=== PATIENT | male | born 1980 | race Two or more races ===

== ENCOUNTER 2019-03-08 18:57 | Inpatient (IN) | payer MEDICAID ==
[~2019-03-08] VITALS: Ht 170.2 cm; Wt 58.4 kg
[~2019-03-08 18:57] MED LIST: CHLO10CA70 PO; FOLI1TAB6 PO; LACT10SO3 PO; PANT40T PO; PRO20T PO; THIA50CA PO
[2019-03-08] MEDS ORDERED: SODIUM CHLORIDE 0.9% 500 ML IV ONE (19:45)
[2019-03-08 19:48] LABS: Hematocrit 30.1 % (41.0-53.0); Mean Corpuscular Hemoglobin 30.5 pg (28.0-32.0); Mean Corpuscular Hgb Conc. 33.2 g/dL (32.0-36.0); Mean Corpuscular Volume 91.7 fL (80.0-100.0); Platelet Count (auto) 67 10^3/uL (140-450); Red Blood Cells 3.28 10^6/uL (4.5-5.90); White Blood Cell 18.8 10^3/uL (4.4-10.8)
[2019-03-08 20:06] LABS: Albumin 1.5 g/dL (3.4-5.0); Calcium 7.8 mg/dL (8.5-10.1); Potassium 3.2 mmol/L (3.5-5.1)
[2019-03-08 20:13] LABS: BUN/Creatinine Ratio 10.4
[2019-03-08 20:15] LABS: Total Protein 6.8 g/dL (6.4-8.2)
[2019-03-08 20:33] LABS: INR 1.95 (0.9-1.15); Prothrombin Time 20.1 sec (9.27-12.13)
[2019-03-08 20:46] LABS: Bilirubin, Total 26.1 mg/dL (0.2-1.0)
[2019-03-08 20:55] LABS: Red Cell Distribution Width 23.9 % (11.8-14.3)
[2019-03-08 20:58] LABS: Basophils % (manual) 0 (0.0-2.0); Blast Cells 0; Eosinophils % (manual) 0 (0-7); Metamyelocytes % 0; Myelocytes % 0; Promyelocytes % 0; Reactive Lymphocytes 0
[2019-03-08 21:55] LABS: Band Neutrophils % (manual) 9; Lymphocytes % (manual) 9 (10.0-50.0); Monocytes % (manual) 9 (0-12)
[2019-03-08] MEDS ORDERED: LACTULOSE 20Gm/30ML SOLN PO ONE (22:15)
[2019-03-08] MEDS ORDERED: ONDANSETRON HCL 4 MG/2 ML VIAL IV PRN (22:45)
[2019-03-08] MEDS ORDERED: TEMAZEPAM 15 MG CAP PO PRN (22:45)
[2019-03-08] MEDS ORDERED: ALBUMIN 5% 250 ML IV ONE (23:15)
[2019-03-09] VITALS (81 sets, daily range): BP systolic 80–130; BP diastolic 39–73
[2019-03-09] MEDS: PIPERACILLIN-TAZOB 2.25GM 50 ML IV SCH ×4 (00:26→22:42)
[2019-03-09] MEDS ORDERED: PHENYLEPHRINE HCL 10 MG/ML VL ONE (01:01)
[2019-03-09] MEDS: PHENYLEPHRINE INJ 20 MG in SODIUM CHL 0.9% 250 ML IV SCH ×3 (01:41→17:15)
--- NOTE | 2019-03-09 02:00 | NUR ---
PT. ARRIVED ON UNIT FROM ER; PT. ON PHENYLEPHRINE GTT AT 40 MCG; PT. IMMEDIATELY NEEDING TO USE TOILET PT. ON LACTULOSE.
--- NOTE | 2019-03-09 02:20 | NUR ---
PT. BACK TO BED WITH NO NOTABLE ABNORMALITIES WITH STOOL; PT. PLACED ON BEDSIDE MONITOR; VITAL SIGNS WNL WITH EXCEPTION TO TEMP AT 95.8 AXILLARY AND WARM BLANKETS X3 PLACED ON PT. AND ROOM TEMP ADJUSTED; PT. ON PHENYLEPHRINE GTT; PT. USES BEDSIDE TOILET; PATIENT STATES " MY PAIN GOAL IS 0-2/10 AND I'M AT A 2/10"; PT. /SON IN ICU WAITING ROOM; WILL BRING FAMILY BACK AND WILL CONT. TO MONITOR PATIENT.
--- NOTE | 2019-03-09 03:30 | NUR ---
DR. BRANDON-RADIOLOGY CALLED WITH RESULTS FROM U/S AND IT SHOWS A THROMBOSED PORTAL VEIN.
--- NOTE | 2019-03-09 03:40 | NUR ---
PAGED HOSPITALIST RE: U/S RESULTS.
--- NOTE | 2019-03-09 03:45 | NUR ---
S/W Winter WILLAMS NP RE: U/S RESULTS SHOWING A THROMBOSED PORTAL VEIN AND HE WILL GET BACK WITH ME.
--- NOTE | 2019-03-09 03:55 | NUR ---
S/W Winter WILLAMS NP AND WILL PUT IN FOR IR CONSULT FIRST AND IF IR UNABLE TO INTERVENE WILL POSSIBLY BE TRANSFERRED TO HIGHER LEVEL OF CARE.
[2019-03-09 04:32] LABS: Basophils # (auto) 0 uL; Basophils % (auto) 0.2 % (0.0-2.0); Eosinophils # (auto) 0.2 uL; Mean Corpuscular Hemoglobin 30.5 pg (28.0-32.0)
[2019-03-09 04:34] LABS: Eosinophils % (auto) 0.7 % (0.0-7.0); Hematocrit 29.7 % (41.0-53.0); Lymphocytes # (auto) 1.3 uL; Lymphocytes % (auto) 6.3 % (10.0-50.0); Mean Corpuscular Hgb Conc. 33.8 g/dL (32.0-36.0); Mean Corpuscular Volume 90.2 fL (80.0-100.0); Monocytes # (auto) 1.7 uL; Monocytes % (auto) 8.2 % (0.0-12.0); Neutrophils # (auto) 17.5 uL; Neutrophils % (auto) 84.6 % (37.0-80.0); Nucleated Red Blood Cells % 0.1 %; Platelet Count (auto) 65 10^3/uL (140-450); Red Blood Cells 3.29 10^6/uL (4.5-5.90); White Blood Cell 20.7 10^3/uL (4.4-10.8)
[2019-03-09 04:41] LABS: Red Cell Distribution Width 23.8 % (11.8-14.3)
[2019-03-09 04:47] LABS: Potassium 3.1 mmol/L (3.5-5.1)
[2019-03-09 05:02] LABS: Albumin 1.7 g/dL (3.4-5.0); BUN/Creatinine Ratio 11.8; Bilirubin, Total 24.2 mg/dL (0.2-1.0); Calcium 7.8 mg/dL (8.5-10.1); Total Protein 6.6 g/dL (6.4-8.2)
[2019-03-09] MEDS: PANTOPRAZOLE 40 MG TAB PO SCH (06:00)
[2019-03-09] MEDS ORDERED: POTASSIUM CHL 20 Meq TABLET PO ONE (06:15)
[2019-03-09] MEDS: metroNIDAZOLE 500MG/100ML 100 ML IV SCH ×3 (07:20→21:58)
--- NOTE | 2019-03-09 08:30 | NUR ---
NPO BREAKFAST TRAY HELD 1000 MEDICATIONS HELD UNTIL AFTER PROCEDURES PENDING.
[2019-03-09] MEDS: ALBUMIN 25% 100 ML IV SCH ×2 (09:21→18:33)
[2019-03-09 10:41] LABS: Urine Bacteria MOD /hpf (None Seen); Urine Blood 3+ /uL (Negative); Urine Hyaline Cast MOD /lpf (0 - 2); Urine Mucus FEW (None Seen); Urine Specific Gravity 1.015 (1.001-1.035); Urine WBC 30 /hpf (0 - 3); Urine WBC Clumps PRESENT /hpf (None Seen)
[2019-03-09 10:44] LABS: Alcohol, Urine < 3.0 mg/dL (0-5); Amphetamine Screen, Urine NEGATIVE (NEGATIVE); Barbiturate Scree,Urine NEGATIVE (NEGATIVE); Benzodiazephine Screen, Urine POSITIVE (NEGATIVE); Cannabinoid Screen, Urine POSITIVE (NEGATIVE); Cocaine Screen, Urine NEGATIVE (NEGATIVE); Opiate Scree,Urine NEGATIVE (NEGATIVE); Phencyclidine Screen, Urine NEGATIVE (NEGATIVE)
--- NOTE | 2019-03-09 10:53 | NUR ---
SECOND ATTEMPTED TO REINSERT LEWIS CATHETER, NO SEDIMENT OR URINE NOTED, WHEN CATHETER REMOVED A STREAK OF LINEAR BLOOD CLOT NOTED. WILL NOTIFY CHARGE NURSE TO ATTEMPT PREVIOUS ATTEMPTS HAVE FAILED.
--- NOTE | 2019-03-09 11:26 | NUR ---
GI CONSULT DR. DOMINIQUE AT BEDSIDE. MD UPDATED ON PATIENTS STATUS. NEW ORDERS IN PLACE. MD ALSO UPDATED AND SON AT NURSES STATION ON PATIENTS POOR STATUS/ CONDITION. AND SON VERBALIZED UNDERSTANDING.
--- NOTE | 2019-03-09 11:27 | NUR ---
HOSPITALIST DR. JOAQUIN UPDATED ON PATIENTS STATUS. NEW ORDERS IN PLACE.
--- NOTE | 2019-03-09 11:46 | NUR ---
BEDSIDE PROCEDURE PERFORMED ULTRASOUND GUIDED PARACENTESIS BEING PERFORMED BY DR. RODRÍGUEZ AT BEDSIDE. PT AWAKE, ALERT, CALM, NO DISTRESS NOTED. VSS ON ELISEO GTT AT THIS TIME. SEE VS. ACCESSED RIGHT LOWER QUADRANT. 1203- PT SLEEPING DURING PROCEDURE, CURRENT VS 93/50 HR 65 POX 99% ON ROOM AIR, RR 13. 3RD VACUTAINER BEING FILLED. 1223 PROCEDURE COMPLETED. ABD INCISION ASYMPTOMATIC. VSS. PT DENIES ANY DISTRESS. Addendum: 03/09/19 at 1225 by Arelis Queen RN TOTAL OUTPUT: 4700 OF DARK SONA FLUIDS
[2019-03-09] MEDS: NOREPINEPHRINE 8 MG/250ML KIT 250 ML IV SCH (12:20)
[2019-03-09] MEDS: FOLIC ACID 1 MG TAB PO SCH (12:21)
[2019-03-09] MEDS: RIFAXIMIN 550 MG TAB PO SCH ×2 (12:21→21:59)
[2019-03-09] MEDS: LACTULOSE 20Gm/30ML SOLN PO SCH ×2 (12:21→21:59)
[2019-03-09] MEDS: THIAMINE HCL 100 MG TAB PO SCH (12:22)
[2019-03-09] MEDS ORDERED: SODIUM CHLORIDE 0.9% 1,000 ML IV ONE (12:30)
--- NOTE | 2019-03-09 14:09 | NUR ---
16F LEWIS CATHETER PLACED USING STERILE TECHNIQUE. IMMEDIATE URINE DRAINAGE NOTED. PATIENT TOLERATED WELL. SMALL AMOUNT OF URINE DRAINAGE NOTED ON ABSORBANT PAD, WHICH STOPPED ONCE LEWIS WAS INSERTED. WILL CONTINUE TO MONITOR.
--- NOTE | 2019-03-09 18:00 | NUR ---
HOSPITALIST AT BEDSIDE MD UPDATED PATIENT AND ON CURRENT STATUS AND POOR PROGNOSIS. QUESTIONS AND CONCERNS ADDRESSED. SEE NEW ORDERS. PERITONEAL FLUID TO BE SENT TO LAB.
[2019-03-09] MEDS ORDERED: POTASSIUM CHL 20MEQ/100ML 100 ML IV ONE (18:15)
--- NOTE | 2019-03-09 19:10 | NUR ---
OPENING NOTE RECEIVED REPORT AND ASSUMED CARE FROM ANA SWAN.
--- NOTE | 2019-03-09 19:36 | NUR ---
BOWEL MOVEMENT PT HAD SMALL LIQUID BOWEL MOVEMENT. CLEANED AND REPOSITIONED. BED IN LOWEST POSITION AND CALL LIGHT WITHIN REACH
--- NOTE | 2019-03-09 19:53 | NUR ---
PERITONEAL FLUID TO BE SENT BY [facility] NURSE LAB WITH CYTOLOGY FORM.
--- NOTE | 2019-03-09 20:15 | NUR ---
DELIVERED PERITONEAL FLUID TO LAB FOR CYTOLOGY
--- NOTE | 2019-03-09 21:40 | NUR ---
18 GAUGE IV STARTED TO RIGHT WRIST. FLUSHES WELL. PT TOLERATED PROCEDURE WELL. CLEAN, DRY, INTACT.
--- NOTE | 2019-03-09 22:00 | NUR ---
PATIENT HAD SMALL AMOUNT OF LIQUID BOWEL MOVEMENT. CLEANED AND REPOSITIONED. BED IN LOWEST POSITION. CALL LIGHT WITHIN REACH
--- NOTE | 2019-03-09 23:00 | NUR ---
PATIENT HAD SMALL AMOUNT OF LIQUID BOWEL MOVEMENT. CLEANED AND REPOSITIONED. BED IN LOWEST POSITION. CALL LIGHT WITHIN REACH
[2019-03-10] VITALS (95 sets, daily range): BP systolic 77–118; BP diastolic 32–66
--- NOTE | 2019-03-10 00:40 | NUR ---
SMALL BOWEL MOVEMENT PT HAD SMALL AMOUNT OF LIQUID BOWEL MOVEMENT. CLEANED AND REPOSITIONED. BED IN LOWEST POSITION. CALL LIGHT WITHIN REACH
[2019-03-10] MEDS: ALBUMIN 25% 100 ML IV SCH (01:12)
[2019-03-10] MEDS: PHENYLEPHRINE INJ 20 MG in SODIUM CHL 0.9% 250 ML IV SCH ×3 (01:13→17:11)
--- NOTE | 2019-03-10 03:18 | NUR ---
SMALL BOWEL MOVEMENT PT HAD SMALL AMOUNT OF LIQUID BOWEL MOVEMENT. CLEANED AND REPOSITIONED. BED IN LOWEST POSITION. CALL LIGHT WITHIN REACH.
[2019-03-10 04:04] LABS: Basophils # (auto) 0.1 uL; Basophils % (auto) 0.3 % (0.0-2.0); Eosinophils # (auto) 0.2 uL; Hematocrit 23.4 % (41.0-53.0); Hemoglobin 8.2 g/dL (13.5-17.5); Lymphocytes # (auto) 0.6 uL; Lymphocytes % (auto) 3.6 % (10.0-50.0); Mean Corpuscular Hemoglobin 31.3 pg (28.0-32.0); Mean Corpuscular Hgb Conc. 34.8 g/dL (32.0-36.0); Mean Corpuscular Volume 89.9 fL (80.0-100.0); Monocytes # (auto) 1.6 uL; Monocytes % (auto) 8.9 % (0.0-12.0); Neutrophils # (auto) 15.6 uL; Neutrophils % (auto) 86.2 % (37.0-80.0); Platelet Count (auto) 50 10^3/uL (140-450); Red Blood Cells 2.61 10^6/uL (4.5-5.90); White Blood Cell 18.1 10^3/uL (4.4-10.8)
--- NOTE | 2019-03-10 04:20 | NUR ---
APPLIED NC @3L DUE TO O2 SATS AT 90% ON ROOM AIR
[2019-03-10 04:22] LABS: BUN/Creatinine Ratio 13.2; Potassium 2.9 mmol/L (3.5-5.1)
--- NOTE | 2019-03-10 04:23 | NUR ---
TITRATED LEVOPHED UP TO 7
--- NOTE | 2019-03-10 04:23 | NUR ---
CRITICAL POTASSIUM 2.9 - WILL NOTIFY ON-CALL HOSPITALIST
--- NOTE | 2019-03-10 04:30 | NUR ---
SMALL BOWEL MOVEMENT PT HAD SMALL AMOUNT OF LIQUID BOWEL MOVEMENT. CLEANED AND REPOSITIONED. BED IN LOWEST POSITION. CALL LIGHT WITHIN REACH.
[2019-03-10 04:38] LABS: Red Cell Distribution Width 23.4 % (11.8-14.3)
--- NOTE | 2019-03-10 04:43 | NUR ---
SPOKE TO HOSPITALIST REGARDING 2.9 POTASSIUM. ORDER RECEIVED
[2019-03-10] MEDS ORDERED: POTASSIUM CHL 20MEQ/100ML 100 ML IV ONE (04:45)
[2019-03-10] MEDS: PIPERACILLIN-TAZOB 2.25GM 50 ML IV SCH ×3 (05:13→21:59)
[2019-03-10] MEDS: metroNIDAZOLE 500MG/100ML 100 ML IV SCH ×2 (05:14→16:15)
[2019-03-10] MEDS: PANTOPRAZOLE 40 MG TAB PO SCH (06:41)
--- NOTE | 2019-03-10 07:00 | NUR ---
SMALL BOWEL MOVEMENT PT HAD SMALL AMOUNT OF LIQUID BOWEL MOVEMENT. CLEANED AND REPOSITIONED. BED IN LOWEST POSITION. CALL LIGHT WITHIN REACH.
--- NOTE | 2019-03-10 07:09 | NUR ---
TITRATED LEVOPHED UP TO 8 PER BLOOD PRESSURE MAP PARAMETER BETWEEN 65-75
--- NOTE | 2019-03-10 07:11 | NUR ---
CLOSING NOTE SHIFT REPORT AND ENDORSED CARE GIVEN TO ANA SWAN.
--- NOTE | 2019-03-10 08:30 | NUR ---
POOR PO INTAKE PATIENT ONLY ATE JELLO, AND 2 APPLE JUICES. ENCOURAGED PATIENT TO EAT SOLID FOODS BUT PATIENT STATED HE IS NOT HUNGRY AND WHEN HE EATS IT CAUSES HIM TO HAVE BLOATING. WILL CONTINUE TO ENCOURAGE.
[2019-03-10] MEDS: NOREPINEPHRINE 8 MG/250ML KIT 250 ML IV SCH ×2 (09:17→13:58)
--- NOTE | 2019-03-10 09:30 | NUR ---
CLERICAL SUPPORT DR. DAVIDSON AT BEDSIDE. AWARE OF K LEVEL WITH REPLACEMENT THIS A.M. SEE NEW ORDERS.
[2019-03-10] MEDS: THIAMINE HCL 100 MG TAB PO SCH (10:00)
[2019-03-10] MEDS: FOLIC ACID 1 MG TAB PO SCH (11:24)
[2019-03-10] MEDS: RIFAXIMIN 550 MG TAB PO SCH ×2 (11:25→21:59)
[2019-03-10] MEDS: LACTULOSE 20Gm/30ML SOLN PO SCH ×2 (11:25→21:59)
[2019-03-10] MEDS: ALBUMIN 25% 50 ML IV SCH ×2 (11:26→17:27)
[2019-03-10] MEDS: POTASSIUM CHL 20MEQ/100ML 100 ML IV SCH ×4 (11:27→17:29)
--- NOTE | 2019-03-10 12:00 | NUR ---
PATIENT REFUSED LUNCH TRAY, AND ONLY REQUESTED APPLE JUICE AT THIS TIME.
--- NOTE | 2019-03-10 12:45 | NUR ---
GI CONSULT DR. DOMINIQEU AT BEDSIDE UPDATED PATIENT ON CURRENT STATUS. SEE MD ORDERS/ NOTES.
--- NOTE | 2019-03-10 16:58 | NUR ---
ROUND DR. JOAQUIN AT BEDSIDE. UPDATED PATIENT ON CURRENT STATUS. SEE NEW ORDERS.
[2019-03-10] MEDS: SPIRONOLACTONE 25 MG TAB PO SCH (17:27)
[2019-03-10] MEDS ORDERED: PROP60CA34 PO (19:06)
[2019-03-10] MEDS ORDERED: LACT10SO3 PO (19:06)
[2019-03-10] MEDS ORDERED: OMEP20TA PO (19:06)
[2019-03-10] MEDS ORDERED: FOLI1TAB6 PO (19:06)
--- NOTE | 2019-03-10 20:00 | NUR ---
SMALL BM X1
--- NOTE | 2019-03-10 20:00 | NUR ---
OPENING NOTE: A&O X4. SOFT SPOKEN. APPROPRIATE AND COOPERATIVE. NSR, HR 80s. SBP 90-100s, MAP >65 ON LEVOPHED GTT. LS CTA, DIMINISHED TO BASES. +PRODUCTIVE COUGH, YELLOW CREAMY SPUTUM. ABD DISTENDED BUT SOFT. NORMOACTIVE BS. +FLATUS. SMALL BM X1 THUS FAR. LEWIS PATENT AND INTACT DRAINING, BRIGHT YELLOW TO DARK SONA URINE. SKIN GROSSLY INTACT, SEE WOUND AND SKIN FLOWHSEET FOR ASSESSMENT. 20 G PIV TO LEFT FOREARM, CDI, PATENT WITH BLOOD RETURN. 18 G PIV TO RIGHT HAND AND RIGHT WRIST, CDI, PATENT WITH BLOOD RETURN. DENIES PAIN, CHEST PAIN, SOB, HEADACHE, DIZZINESS, N/V, NUMBNESS AND TINGLING. MOVED LEVOPHED GTT FROM RIGHT WRIST TO LEFT FOREARM PIV. REINFORCED POC. MAINTAINED PATIENT SAFETY: BED LOCKED AND IN THE LOWEST POSITION, BED ALARM ON, CALL LIGHT WITHIN REACH. ENCOURAGED PATIENT AND FAMILY TO VERBALIZE QUESTIONS AND CONCERNS. PATIENT AND FAMILY VERBALIZED UNDERSTANDING AT THIS TIME, NO FURTHER QUESTIONS OR CONCERNS
--- NOTE | 2019-03-10 20:56 | NUR ---
SMEAR BM X1
--- NOTE | 2019-03-10 21:52 | NUR ---
SMALL BMX1
--- NOTE | 2019-03-10 21:52 | NUR ---
C/O BURNING TO LEFT FOREARM: LEVOPHED STOPPED, SWITCHED TO RIGHT HAND 18 G PIV. 20 G PIV TO LEFT FOREARM REMOVED. APPLIED ICE PACK TO SITE. WILL MONITOR. ROSS LIU RN MADE AWARE Addendum: 03/10/19 at 2158 by Мария Guillen RN RN REMOVED ICE PACK. ORDERED NITRO TOPICAL PER EXTRAVASATION PROTOCOL AND WILL APPLY WARMTH
[2019-03-10] MEDS ORDERED: NITROGLYCERIN 2% OINT 1GM PKG TD ONE (22:00)
--- NOTE | 2019-03-10 22:05 | NUR ---
APPLIED NITRO OINT TO LEFT FOREARM PER EXTRAVASATION PROTOCOL, COVERED WITH TEGADERM AND APPLIED WARM COMPRESS; INFORMED PATIENT ABOUT THE RATIONALE FOR INTERVENTION AND PATIENT EXPRESSED UNDERSTANDING AT THIS TIME. WILL CONT TO MONITOR SITE AND VSS.
--- NOTE | 2019-03-10 22:12 | NUR ---
PATIENT REFUSED SCHEDULED LACTULOSE: REPORTS FRUSTRATION WITH FREQUENT BMs AND HAVING TO USE THE BEDPAN, ALSO REPORTS POOR APPETITE. FOX RAISER EXPLAINED THE RATIONALE FOR LACTULOSE. FOX RAISER EXPLAINED THAT PATIENT TO HAVE AMMONIA LEVEL DRAWN IN AM, AND CAN HAVE DISCUSSION WITH MD ABOUT DOSING WHEN THE RESULTS ARE BACK. PATIENT EXPRESSED UNDERSTANDING OF POC. WILL CONT CARE
--- NOTE | 2019-03-10 23:00 | NUR ---
REPORTS IS UP TO 2500 ML MAX
--- NOTE | 2019-03-10 23:08 | NUR ---
LEFT FOREARM SITE CHECK: SITE OF ? EXTRAVASATION. PATIENT REPORTS BURNING SENSATION HAS SUBSIDED. NO ERYTHEMA, BLISTERING, SWELLING, NOTED. +CMS. WILL CONT CARE
--- NOTE | 2019-03-10 23:08 | NUR ---
SMALL BM X1
[2019-03-11] VITALS (94 sets, daily range): BP systolic 77–129; BP diastolic 30–71
--- NOTE | 2019-03-11 00:37 | NUR ---
LEFT FOREARM SITE CHECK: PATIENT DENIES PAIN. +CMS. NO BLISTERING, ERYTHEMA, EDEMA, OR ECCHYMOSIS. WILL CONT CARE
[2019-03-11] MEDS: ALBUMIN 25% 50 ML IV SCH (01:13)
--- NOTE | 2019-03-11 01:14 | NUR ---
C/O DISCOMFORT TO LEWIS SITE - STAT LOCK STORED IN PYXIS DOES NOT FIT PATIENT'S LEWIS CATHETER. SECURED LEWIS TO LEFT LEG VIA MEDIPORE TAPE. SENIOR FINANCIAL EXPLAINED RATIONALE FOR LEWIS CATHETER AT THIS TIME. PATIENT VERBALIZED UNDERSTANDING WILL CONT CARE
--- NOTE | 2019-03-11 01:15 | NUR ---
ATTEMPTED BM BUT NO SUCCESS
[2019-03-11] MEDS: PHENYLEPHRINE INJ 20 MG in SODIUM CHL 0.9% 250 ML IV SCH ×3 (02:35→19:15)
--- NOTE | 2019-03-11 02:58 | NUR ---
ROUNDED: PATIENT SLEEPING. EVEN AND UNLABORED BREATHING. VSS. WILL CONT CARE
--- NOTE | 2019-03-11 03:25 | NUR ---
SMALL BM X1
[2019-03-11 04:22] LABS: Mean Corpuscular Hemoglobin 31.3 pg (28.0-32.0); Mean Corpuscular Hgb Conc. 33.8 g/dL (32.0-36.0); White Blood Cell 20.1 10^3/uL (4.4-10.8)
[2019-03-11 04:24] LABS: Hematocrit 23.7 % (41.0-53.0); Mean Corpuscular Volume 92.6 fL (80.0-100.0); Platelet Count (auto) 55 10^3/uL (140-450); Red Blood Cells 2.56 10^6/uL (4.5-5.90)
[2019-03-11 04:40] LABS: BUN/Creatinine Ratio 13.9; Calcium 7.9 mg/dL (8.5-10.1); Potassium 3.2 mmol/L (3.5-5.1)
[2019-03-11 04:42] LABS: Red Cell Distribution Width 23.5 % (11.8-14.3)
[2019-03-11 04:43] LABS: Basophils % (manual) 0 (0.0-2.0); Blast Cells 0; Eosinophils % (manual) 0 (0-7); Metamyelocytes % 0; Myelocytes % 0; Promyelocytes % 0; Reactive Lymphocytes 0
[2019-03-11 05:46] LABS: Band Neutrophils % (manual) 7; Lymphocytes % (manual) 5 (10.0-50.0); Monocytes % (manual) 5 (0-12)
[2019-03-11] MEDS: PIPERACILLIN-TAZOB 2.25GM 50 ML IV SCH ×3 (05:51→22:32)
[2019-03-11] MEDS: PANTOPRAZOLE 40 MG TAB PO SCH (06:41)
[2019-03-11] MEDS: SPIRONOLACTONE 25 MG TAB PO SCH ×2 (06:41→17:58)
--- NOTE | 2019-03-11 06:42 | NUR ---
CLOSING NOTE: NEURO STATUS REMAINS UNCHANGED, PLEASANT AND COOPERATIVE. 18 G PIV TO RIGHT WRIST AND HAND REMAIN PATENT AND CDI WITH BLOOD RETURN. LEFT FOREARM REMAINS WITHOUT ERYTHEMA, EDEMA, BLISTERING, OR PAIN. WILL ENDORSE CARE TO DAY SHIFT RN
--- NOTE | 2019-03-11 06:57 | NUR ---
PARTIAL LINEN CHANGE COMPLETED
--- NOTE | 2019-03-11 07:19 | NUR ---
REPORT AND CARE ENDORSED TO SOSA SALMON
[2019-03-11] MEDS: metroNIDAZOLE 500MG/100ML 100 ML IV SCH ×3 (09:12→16:30)
[2019-03-11] MEDS: THIAMINE HCL 100 MG TAB PO SCH (09:47)
[2019-03-11] MEDS: FOLIC ACID 1 MG TAB PO SCH (09:47)
[2019-03-11] MEDS: LACTULOSE 20Gm/30ML SOLN PO SCH ×2 (09:47→22:32)
[2019-03-11] MEDS: RIFAXIMIN 550 MG TAB PO SCH ×2 (09:47→22:33)
[2019-03-11] MEDS ORDERED: POTASSIUM CHLORIDE 40 MEQ, LIDOCAINE 1% (LOCAL ANESTH.) 4 ML in SODIUM CHL 0.9% 100 ML IV ONE (11:00)
--- NOTE | 2019-03-11 11:21 | NUR ---
Resumed care at 0700. Orders reviewed and ongoing assessments being done. Being treated for multiple problems. Remains alert and oriented but signs of fatigue. Able to participate with care and is able to shift and off load weight in bed. Poor appetite and only ate 25% of breakfast. Continue to have frequent small watery stools due to illness and medications. Maintaining skin clean and dry and applying skin barrier cream. Both Dr. Ramos and Gagan were in to round. Examined and chart reviewed, discussed plan of care.
[2019-03-11] MEDS: MIDODRINE HCL 10 MG TAB PO SCH ×2 (13:05→17:58)
[2019-03-11] MEDS: OCTREOTIDE ACETATE 100 MCG/ML VL SUBCUT SCH ×2 (14:30→22:00)
--- NOTE | 2019-03-11 16:49 | NUR ---
Noonan catheter dc'd (causing pain and discomfort) Order to discontinue noonan catheter. Noonan dc'd with clean technique following deflation of balloon. Patient tolerated well with no complaints of pain. Continue care. Has been voiding post removal of catheter. Cristiane and family have been visiting throughout the day. Assist with care and emotional support being given.
--- NOTE | 2019-03-11 18:24 | NUR ---
No remarkable changes remains alert and oriented in no distress. Continues with poor appetite and not able to eat much of anything today. Passed 7 loose watery stools, remains on lactulose. Unable to wean of Levophed gtt and remains at 6mcg/min, infusing to right arm, no s/s of infiltration. Dr. Barrera just arrived to round.
--- NOTE | 2019-03-11 18:28 | NUR ---
Prior shift, had been c/o of burning sensation to left IV access, was removed by Мария SWAN during prior shift. Area remains asymptomatic, no erythremia or pain to left arm.
--- NOTE | 2019-03-11 19:10 | NUR ---
Ordered placed to discontinue Chery catheter by Dr. Mcelroy, wrong patient and unable to discontinue order under warehouse order picker.
[2019-03-11] MEDS ORDERED: POTASSIUM CHL 20MEQ/100ML 100 ML IV ONE (19:30)
--- NOTE | 2019-03-11 19:30 | NUR ---
report received and assumed care.
--- NOTE | 2019-03-11 20:00 | NUR ---
PATIENT ON BED LOPEZ; X1 LIQUID BM-YELLOW/LIGHT BROWN; BAM-CARE PROVIDED AND BARRIER CREAM APPLIED.
--- NOTE | 2019-03-11 20:45 | NUR ---
PATIENT AMBULATED TO TOILET IN ROOM; PT. TOLERATED WELL; PT. HAD X1 BM.
--- NOTE | 2019-03-11 21:40 | NUR ---
PATIENT ON BED LOPEZ; PT. HAD X1 LIQUID BM-YELLOW/LIGHT BROWN; BAM-CARE PROVIDED AND BARRIER CREAM APPLIED; PT. TOLERATED WELL.
[2019-03-12] VITALS (71 sets, daily range): BP systolic 79–125; BP diastolic 34–72
[2019-03-12] MEDS: metroNIDAZOLE 500MG/100ML 100 ML IV SCH ×3 (00:21→16:18)
--- NOTE | 2019-03-12 02:30 | NUR ---
PATIENT ON BED LOPEZ; X1 LIQUID BM-YELLOW/LIGHT BROWN; ABM-CARE PROVIDED; PT. TOLERATED WELL.
[2019-03-12] MEDS: PHENYLEPHRINE INJ 20 MG in SODIUM CHL 0.9% 250 ML IV SCH ×3 (03:35→20:15)
[2019-03-12 06:02] LABS: Basophils # (auto) 0.1 uL; Basophils % (auto) 0.3 % (0.0-2.0); Eosinophils # (auto) 0.2 uL; Eosinophils % (auto) 0.8 % (0.0-7.0); Hematocrit 25.3 % (41.0-53.0); Hemoglobin 8.5 g/dL (13.5-17.5); Lymphocytes # (auto) 1.1 uL; Mean Corpuscular Hgb Conc. 33.6 g/dL (32.0-36.0); Mean Corpuscular Volume 92.3 fL (80.0-100.0); Monocytes # (auto) 2.1 uL; Monocytes % (auto) 7.9 % (0.0-12.0); Neutrophils # (auto) 23.4 uL; Platelet Count (auto) 70 10^3/uL (140-450); Red Blood Cells 2.74 10^6/uL (4.5-5.90); White Blood Cell 26.8 10^3/uL (4.4-10.8)
[2019-03-12 06:12] LABS: Red Cell Distribution Width 22.7 % (11.8-14.3)
[2019-03-12 06:20] LABS: BUN/Creatinine Ratio 13.2; Calcium 8.3 mg/dL (8.5-10.1); Potassium 4.1 mmol/L (3.5-5.1)
[2019-03-12] MEDS: PIPERACILLIN-TAZOB 2.25GM 50 ML IV SCH ×3 (06:57→22:06)
[2019-03-12] MEDS: SPIRONOLACTONE 25 MG TAB PO SCH ×2 (06:58→10:06)
[2019-03-12] MEDS: MIDODRINE HCL 10 MG TAB PO SCH ×3 (06:58→18:09)
[2019-03-12] MEDS: PANTOPRAZOLE 40 MG TAB PO SCH (06:58)
[2019-03-12] MEDS: OCTREOTIDE ACETATE 100 MCG/ML VL SUBCUT SCH ×3 (08:39→22:30)
[2019-03-12] MEDS: LACTULOSE 20Gm/30ML SOLN PO SCH ×2 (10:07→22:00)
[2019-03-12] MEDS: RIFAXIMIN 550 MG TAB PO SCH ×2 (10:07→22:06)
[2019-03-12] MEDS: FOLIC ACID 1 MG TAB PO SCH (10:07)
[2019-03-12] MEDS: THIAMINE HCL 100 MG TAB PO SCH (10:07)
--- NOTE | 2019-03-12 11:22 | NUR ---
Nutrition Assessment Notes please see attached link for complete assessment Est. Needs BW 59 k-1770kcal (25-30 kcal/kgBW), 35-47 gms pro (0.6-0.8 gms/kgBW r/t elev ammonia, RFT, severe hypoalb). Will continue to monitor pertinent labs and reassess nutrient needs prn Addendum: 03/12/19 at [address] Amended: Links added.
[2019-03-12] MEDS: NOREPINEPHRINE 8 MG/250ML KIT 250 ML IV SCH (14:59)
--- NOTE | 2019-03-12 15:15 | NUR ---
Resumed care at 0700. Orders reviewed and ongoing assessments being done. Being treated for multiple problems. Remains alert and oriented and able to participate with care and is able to shift and off load weight in bed. Assisting out of bed to BSC for bowel movements, 6 small loose stools so far. Maintaining skin clean and dry and applying skin barrier cream. Remains on Levophed gtt for hemodynamic stability and titrating as appropriate. Poor appetite and declined both breakfast and lunch. Only taking water at this time. Both Dr. Ramos and Gagan were in to round. Examined and chart reviewed, discussed plan of care. Per Dr. Ramos possible paracentesis tomorrow if appropriate. Mother and extended family have been in to visit, good support system.
--- NOTE | 2019-03-12 18:47 | NUR ---
No remarkable changes, remains alert and oriented in no acute distress. Unable to wean off Levophed gtt, titrating as appropriate.
[2019-03-13] VITALS (72 sets, daily range): BP systolic 84–137; BP diastolic 43–68
[2019-03-13 04:35] LABS: Hematocrit 27.6 % (41.0-53.0); Hemoglobin 9.3 g/dL (13.5-17.5); Mean Corpuscular Hemoglobin 31.4 pg (28.0-32.0); Mean Corpuscular Hgb Conc. 33.6 g/dL (32.0-36.0); Mean Corpuscular Volume 93.5 fL (80.0-100.0); Platelet Count (auto) 73 10^3/uL (140-450); Red Blood Cells 2.95 10^6/uL (4.5-5.90); White Blood Cell 27.9 10^3/uL (4.4-10.8)
[2019-03-13] MEDS: PHENYLEPHRINE INJ 20 MG in SODIUM CHL 0.9% 250 ML IV SCH ×2 (04:35→10:54)
[2019-03-13 04:46] LABS: Calcium 8.4 mg/dL (8.5-10.1); Potassium 3.7 mmol/L (3.5-5.1)
[2019-03-13 04:48] LABS: BUN/Creatinine Ratio 14.3
[2019-03-13 04:52] LABS: Red Cell Distribution Width 23.7 % (11.8-14.3)
[2019-03-13 04:53] LABS: Basophils % (manual) 0 (0.0-2.0); Blast Cells 0; Eosinophils % (manual) 0 (0-7); Metamyelocytes % 0; Myelocytes % 0; Promyelocytes % 0; Reactive Lymphocytes 0
[2019-03-13] MEDS: PANTOPRAZOLE 40 MG TAB PO SCH (06:00)
[2019-03-13] MEDS: PIPERACILLIN-TAZOB 2.25GM 50 ML IV SCH ×3 (06:00→21:43)
[2019-03-13] MEDS: OCTREOTIDE ACETATE 100 MCG/ML VL SUBCUT SCH ×3 (06:00→21:44)
[2019-03-13] MEDS: MIDODRINE HCL 10 MG TAB PO SCH ×3 (06:00→18:00)
[2019-03-13 06:18] LABS: Band Neutrophils % (manual) 7; Lymphocytes % (manual) 7 (10.0-50.0); Monocytes % (manual) 1 (0-12)
[2019-03-13] MEDS: NOREPINEPHRINE 8 MG/250ML KIT 250 ML IV SCH (08:12)
[2019-03-13] MEDS: metroNIDAZOLE 500MG/100ML 100 ML IV SCH ×3 (08:25→16:02)
[2019-03-13 08:51] LABS: INR 2.72 (0.9-1.15); Prothrombin Time 27.5 sec (9.27-12.13)
--- NOTE | 2019-03-13 09:58 | NUR ---
ELEVATED INR DR. JOAQUIN PAGED TO NOTIFY OF CURRENT INR OF 2.72. DR. RODRÍGUEZ STATING PATIENT IS AT HIGH RISK FOR BLEEDING AT THIS TIME. PAGED TO NOTIFY. NEW ORDERS IN PLACE.
--- NOTE | 2019-03-13 10:12 | NUR ---
PO MEDICATIONS HELD PT NPO FOR PROCEDURE. MEDICATIONS HELD UNTIL AFTER PROCEDURE.
--- NOTE | 2019-03-13 10:55 | NUR ---
Lab at bedside performing type and screen. Po medications given with a small sip of water as transfusion is pending at this time.
[2019-03-13] MEDS: THIAMINE HCL 100 MG TAB PO SCH (11:24)
[2019-03-13] MEDS: LACTULOSE 20Gm/30ML SOLN PO SCH ×2 (11:24→21:43)
[2019-03-13] MEDS: RIFAXIMIN 550 MG TAB PO SCH ×2 (11:24→21:43)
[2019-03-13] MEDS: FOLIC ACID 1 MG TAB PO SCH (11:24)
--- NOTE | 2019-03-13 11:50 | NUR ---
Mounter Smoking Pipe at bedside Dr. Farah at bedside. Md requesting accurate u/o. Informed kelsi has had mixed stool and urine and notified of previous noonan was removed. Md requesting a noonan to be reinserted. Informed md of pain patient was expressing with previous insertion and attempts. New order in place for urojet lidocaine. Bladder scanner performed at bedside per md request. Urine residual noted approx. 145ml. Md aware. Need for noonan explained to patient, pt verbalized understanding.
--- NOTE | 2019-03-13 11:55 | NUR ---
BLOOD BANK FFP IS BEING DEFROSTED AT THIS TIME. AWAITING CALL WHEN READY.
[2019-03-13] MEDS ORDERED: LIDOCAINE 2% JELLY 11ml (GLYDO) UR ONE (12:00)
--- NOTE | 2019-03-13 12:30 | NUR ---
Noonan catheter insertion Patient assessed and determined to be in need of noonan catheter. Order obtained from MD. Patient educated on catheter and reason for insertion. All questions answered. Noonan catheter 16 guage Georgian inserted with clean sterile technique. Patient tolerated well.
--- NOTE | 2019-03-13 14:00 | NUR ---
FFP HELD 2 ADDITIONAL HELD AFTER VERIFYING WITH DR. OZER. SILVA STATING 2 UNITS ADMINISTERED ARE OK FOR PARACENTESIS AT THIS POINT. PATIENT REMAINS AT HIGH RISK FOR BLEEDING. PATIENT AWARE AND VERBALIZING UNDERSTANDING AND WOULD LIKE TO CONTINUE WITH TX AT THIS TIME.
--- NOTE | 2019-03-13 14:11 | NUR ---
CASE MANAGEMENT AT BEDSIDE SPEAKING WITH PATIENT RE: DC PLANNING.
--- NOTE | 2019-03-13 14:55 | NUR ---
HOSPICE EVALUATION COVERING NURSE STATING PATIENT AND HAVE ACCEPTED HOSPICE AND WILL BE EVALUATED BY [address]Kunal PRIDE. DR. RODRÍGUEZ AT BEDSIDE AT THIS TIME SPEAKING TO PATIENT AND PREPARING PARACENTESIS.
--- NOTE | 2019-03-13 15:00 | NUR ---
BEDSIDE PROCEDURE PERFORMED DR. RODRÍGUEZ AT BEDSIDE PERFORMING PROCEDURE VIA STERILE TECHNIQUE. PTS VSS. 3200ML OF DARK SONA FLUID NOTED. RIGHT LATERAL ABD SITE CDI. NO DISTRESS NOTED.
[2019-03-13] MEDS: SPIRONOLACTONE 25 MG TAB PO SCH (15:54)
--- NOTE | 2019-03-13 16:18 | NUR ---
SS consult regarding Hospice evaluation.Pt is alert and oriented and able to participate in conversation. Pt's spouse, Dustin, Addendum: 03/13/19 at 1622 by DIANA NOLASCO SS Pt and spouse , Dustin, provided information on hospice program and list of choices. Pt verbalized wanting the extra support and coverage of medications. Spouse requested [facility] hospice as her first and second choices. Contacted [facility], [facility] manager distribution center, and faxed requested medical information. Notified [facility] that would be back at bedside around 1630. Will obtain outcome from hospice after eval completed.
--- NOTE | 2019-03-13 17:00 | NUR ---
[facility] AT BEDSIDE FOR EVALUATIONS. NO CURRENT D/C ORDER IN PLACE.
--- NOTE | 2019-03-13 17:35 | NUR ---
LEWIS PAIN PATIENT COMPLAINING OF SEVERE PAIN FROM LEWIS CATHETER, URINE NOTED IN COLLECTIONS CHAMBER. INFORMED PATIENT DIE STORAGE CLERK IS HIGHLY RECOMMENDING LEWIS TO MONITOR KIDNEY FUNCTION IN ORDER TO CONTINUE WITH APPROPRIATE TREATMENT. PATIENT AND AT BEDSIDE VERBALIZED UNDERSTANDING AND CONTINUES TO STATE HE WANTS THE LEWIS TO BE REMOVED. DIE STORAGE CLERK DR. LETY MEJIA CALLED BACK AND NOTIFIED. STATED THERE IS NOTHING WE CAN DO IF PATIENT REFUSES AND HE IS TO BE REEDUCATED ON IMPORTANCE OF AND RISK OF NOT HAVING LEWIS. PT NOTIFIED AND VERBALIZED UNDERSTANDING.
--- NOTE | 2019-03-13 19:30 | NUR ---
PATIENT UP TO BEDSIDE COMMODE; PT. HAD X1 BM-LOOSE, YELLOW/BROWN; PT. TOLERATED WELL; AND PT. PLACED BACK IN BED.
--- NOTE | 2019-03-13 20:15 | NUR ---
PATIENT UP TO TOILET; X1 BM-YELLOW/BROWN; BAM-CARE PROVIDED AND PT. BACK IN BED; PT. TOLERATED WELL.
--- NOTE | 2019-03-13 21:26 | NUR ---
PT. UP TO TOILET; PER-CARE PROVIDED; PT. BACK IN BED AND TOLERATED WELL; PT. HAD X1 BM, YELLOW-BROWN, LIQUID.
--- NOTE | 2019-03-13 22:30 | NUR ---
PATIENT UP TO TOILET; X1 BM-YELLOW/BROWN/LIQUID; BAM-CARE PROVIDED; PT. TOLERATED WELL.
[2019-03-14] VITALS (65 sets, daily range): BP systolic 66–113; BP diastolic 28–90
--- NOTE | 2019-03-14 02:24 | NUR ---
PATIENT UP TO TOILET; X1 BM-YELLOW/BROWN/LIQUID; BAM-CARE PROVIDED; PT. BACK IN BED AND TOLERATED WELL.
[2019-03-14] MEDS: PHENYLEPHRINE INJ 20 MG in SODIUM CHL 0.9% 250 ML IV SCH ×2 (05:35→10:55)
[2019-03-14] MEDS: PIPERACILLIN-TAZOB 2.25GM 50 ML IV SCH ×2 (06:00→14:23)
[2019-03-14] MEDS: MIDODRINE HCL 10 MG TAB PO SCH ×2 (06:00→12:18)
[2019-03-14] MEDS: PANTOPRAZOLE 40 MG TAB PO SCH (06:00)
[2019-03-14] MEDS: OCTREOTIDE ACETATE 100 MCG/ML VL SUBCUT SCH ×2 (06:00→14:23)
--- NOTE | 2019-03-14 07:35 | NUR ---
REPORT REPORT RECEIVED FROM TIERNEY RNJULIETA. PT RESTING IN BED WITH EYES CLOSED AND IN NO DISTRESS. CONTINUE TO MONITOR.
--- NOTE | 2019-03-14 08:00 | NUR ---
HOSPICE RECEIVED A PHONE CALL FROM TALENT ASSISTANT FROM [facility]. SHE TOLD ME THAT TRANSPORT WILL BE HERE TO BUSINESS SYSTEMS ADMINISTRATOR THE PT AT 1030. I LET HER KNOW THAT PT IS STILL ON A LEVOPHED DRIP AT 5 MCG WITH A BP OF 89/40. WILL BE CONTACTING TO MAKE HIM AWARE AND THEN WILL GET BACK TO HER. CONTACT # IS [phone].
--- NOTE | 2019-03-14 08:30 | NUR ---
ASSESSMENT WOKE PT FOR ASSESSMENT. A/O X4. AWARE OF PLANNED DISCHARGE HOME TO HOSPICE BUT MADE AWARE THAT HE IS STILL REQUIRING BP SUPPORT MEDICINE AND THAT HE CANNOT GO HOME ON THE MED. ABLE TO HELP MOVE SELF IN BED. LUNGS CLEAR THROUGHOUT. ROOM AIR SAT OF 95-97%. TELE SR 68 WITH FIRST DEGREE HB, DEPRESSED ST IN LEAD II AND ELEVATED ST IN LEAD V. PALPABLE PULSES TO ALL EXTREMITIES WITH NO EDEMA NOTED. ABD SOFT AND FLAT WITH + BOWEL SOUNDS. LAST BM WAS EARLIER THIS AM. VOIDED EARLIER THIS AM ALSO. SKIN INTACT BUT VERY JAUNDICED INCLUDING SCLERA. TURNS SELF IN BED. BROUGHT IN BREAKFAST BUT PT DOES NOT WANT TO EAT. DENIES NAUSEA, "JUS NOT HUNGRY".
--- NOTE | 2019-03-14 08:45 | NUR ---
SS consult regarding hospice evaluation. Pt and spouse met with [facility], on last evening. Pt and spouse agreed to hospice with [facility]. Pinky ordered all dme from Hospice source which will be delivered this morning between 9am -10am. Transportation arrangements have been made for pt with [facility] via [facility] with O2 between 10-11am. Pt and spouse verbalize understanding and agreeance with d/c plan. Addendum: 03/14/19 at 0847 by DIANA NOLASCO Amended: Links added.
--- NOTE | 2019-03-14 09:19 | NUR ---
CHRISTIAN SILVA CALLED DR Ayla JOAQUIN AND LEFT A MESSAGE INFORMING HIM THAT PT ON LEVOPHED AT 5 MCG WITH A BP OF 88/45. PT SUPPOSED TO GO HOME ON HOSPICE WITH PICKUP TIME OF 1030. SPOKE WITH A WEB USER EXPERIENCE STRATEGIST FROM [facility] AT 0800 AND INFORMED HER THAT PT STILL ON LEVOPHED DRIP.
--- NOTE | 2019-03-14 09:22 | NUR ---
ELIMINATION ASSISTED PT TO THE TOILET. PT HAD A LOOSE WATERY BROWN GREEN BM AND ALSO VOIDED IN THE TOILET. SELF BAM CARE AND ASSISTED PT BACK TO BED. CONTINUE TO MONITOR.
[2019-03-14] MEDS: metroNIDAZOLE 500MG/100ML 100 ML IV SCH ×2 (09:33)
[2019-03-14] MEDS: NOREPINEPHRINE 8 MG/250ML KIT 250 ML IV SCH (09:34)
--- NOTE | 2019-03-14 10:25 | NUR ---
ELIMINATION ASSISTED PT TO THE TOILET. HE PASSED A SMALL AMOUNT OF VERY LOOSE BROWNISH YELLOW BM AND ALSO VOIDED A SMALL AMOUNT. ASSISTED BACK TO BED. TOLERATED WELL.
--- NOTE | 2019-03-14 10:35 | NUR ---
FAMILY/CODE STATUS SPOKE WITH PT'S . JODEE, BY PHONE AND VERIFIED PASSWORD. DISCUSSED MAKING PT A DNR/DNI STATUS HERE HE WILL BE DNR/DNI AT HOME WITH HOSPICE, TO ALLOW DISCONTINUING LEVOPHED PT CANNOT GO HOME ON LEVOPHED. THIS WAS NOT HER UNDERSTANDING OF THE CODE STATUS FOR HOSPICE. SHE IS COMING OVER TO THE HOSPITAL TO DISCUSS FURTHER. CALLED AND SPOKE WITH HOSPICE LIASON , MAKING HER AWARE OF THE SITUATION. SHE WILL BE CONTACTING THE PT'S , JODEE.
--- NOTE | 2019-03-14 10:50 | NUR ---
ADMINISTERED SCHEDULED MEDS EXCEPT FOR LACTULOSE WHICH PT REFUSED ANS FOLIC ACID WHICH PT REFUSED STATING HE TOOK IT EARLIER. IT IS NOT DOCUMENTED BEING GIVEN SINCE YESTERDAY AM. HELD SPIRINOLACTONE DUE TO LOW BP AND ON LEVOPHED.
[2019-03-14] MEDS: RIFAXIMIN 550 MG TAB PO SCH (10:54)
[2019-03-14] MEDS: SPIRONOLACTONE 25 MG TAB PO SCH (10:55)
[2019-03-14] MEDS: LACTULOSE 20Gm/30ML SOLN PO SCH ×2 (10:55→11:01)
[2019-03-14] MEDS: FOLIC ACID 1 MG TAB PO SCH ×2 (10:55→11:00)
[2019-03-14] MEDS: THIAMINE HCL 100 MG TAB PO SCH (10:55)
--- NOTE | 2019-03-14 11:27 | NUR ---
FAMILY PT'S , JODEE, HERE. ANSWERED HER QUESTIONS AND EXPLAINED ABOUT NEEDING DNR STATUS BEFORE BEING ABLE TO TURN OFF THE LEVOPHED. SHE IS UNSURE ABOUT THAT AND WANTS TO SPEAK WITH HER .
--- NOTE | 2019-03-14 11:30 | NUR ---
MD VISIT DR DOMINIQUE HERE TO SEE PT AND UPDATED ON THE PT'S CURRENT STATUS AND POSSIBLE HOME ON HOSPICE IF ABLE TO WEAN OFF LEVOPHED OR CODE STATUS CHANGED TO DNR AND THEN WILL BE ABLE TO STOP THE LEVOPHED.
--- NOTE | 2019-03-14 12:10 | NUR ---
ELIMINATION PT ASSISTED TO TOILET BY HIS SONS. VOIDED AND HAD SMALL LOOSE BM, PER PT, NOT SEEN BY RN. ASSISTED BACK TO BED AND PULLED UP IN BED. LUNGS REMAIN CLEAR. O2 SAT OF 100% ON ROOM AIR. DENIES ANY PAIN.
[2019-03-14] MEDS ORDERED: MORPHINE SULF INJ 2 MG/ML SYRINGE 1ML IV PRN (13:45)
[2019-03-14] MEDS ORDERED: BISACODYL 10 MG RECT SUPP PR PRN (13:45)
[2019-03-14] MEDS ORDERED: ALPRAZolam 0.5 MG TAB PO PRN (13:45)
[2019-03-14] MEDS ORDERED: ONDANSETRON ODT 4 MG TAB PO PRN (13:45)
[2019-03-14] MEDS ORDERED: DOCUSATE SOD 100 MG CAP PO PRN (13:45)
--- NOTE | 2019-03-14 14:59 | NUR ---
SPOKE WITH FAMILY AND THEY ARE STILL WAITING FOR ANOTHER FAMILY MEMBER TO ARRIVE. WILL TURN OFF LEVOPHED WHEN THE OTHER FAMILY MEMBER IS HERE AND HAS VISITED. PT RESTING QUIETLY , ENJOYING HIS FAMILY. HE DENIES ANY PAIN OR DISCOMFORT.
--- NOTE | 2019-03-14 16:05 | NUR ---
REASSESSED PT. VSS BP OF 97/56 WITH LEVOPHED AT 3 MCG. HAVE NOT TURNED IT OFF YET FAMILY STILL WAITING FOR ONE BROTHER STILL TO ARRIVE. LET KNOW THAT TRANSPORT IS SUPPOSED TO BE HERE BETWEEN [id number]. SHE WILL TRY TO CONTACT THE PT'S BROTHER FOR AN ETA AND I [facility] TO MAKE HER AWARE. SHE WILL TRY AND HOLD THE TRANSPORT FOR A WHILE IF POSSIBLE.
--- NOTE | 2019-03-14 17:09 | NUR ---
DISCHARGE INSTRUCTIONS REVIEWED DISCHARGE INSTRUCTIONS WITH PT'S . SHE EXPRESSED UNDERSTANDING. PT GOING HOME UNDER THE CARE OF [facility], . DRESSED PT IN CLOTHES BROUGHT BY HIS . DISCONTINUED HIS IVF AND LEVOPHED DRIP WHICH WAS AT 3 MCG. IVS DISCONTINUED FROM RIGHT WRIST AND HAND. TOLERATED WELL BY PT WITH NO COMPLAINT OF PAIN. PT HOME WITH HOSPICE. FACE SHEET AND COPY OF DNR ORDER PROVIDED TO TRANSPORT TEAM.
--- NOTE | 2019-03-14 17:26 | NUR ---
PT OUT VIA WHEELCHAIR ACCOMPANIED BY TRANSPORT PERSONNEL AND HIS FAMILY. ALL BELONGINGS HOME WITH FAMILY PREVIOUSLY, PER . SHE BROUGHT SWEATPANTS, BOXERS, SWEATSHIRT AND SLIDES AND THOSE WERE PUT ON PT FOR THE RIDE HOME.
== END 2019-03-14 17:26 | disposition hospice, home (50) | DRG 720 ==
LOC: ER 18:57 → OVERFLOW 22:48 → ICU WEST 03-09 02:18
PROVIDERS: ADMIT Nurse Practitioner; ATTEND Internal Medicine
PROC: 0W9G3ZZ Drainage of Peritoneal Cavity, Percutaneous Approach (ICD-10-PCS; principal; 2019-03-09)
PROC: 0W9G3ZZ Drainage of Peritoneal Cavity, Percutaneous Approach (ICD-10-PCS; 2019-03-13)
PROC: 30233K1 Transfusion of Nonautologous Frozen Plasma into Peripheral Vein, Percutaneous Approach (ICD-10-PCS; 2019-03-13)
DX: A41.9 Sepsis, unspecified organism (principal); K76.7 Hepatorenal syndrome; N17.0 Acute kidney failure with tubular necrosis; I81 Portal vein thrombosis; E43 Unspecified severe protein-calorie malnutrition; D68.9 Coagulation defect, unspecified; R65.21 Severe sepsis with septic shock; R57.1 Hypovolemic shock; E87.1 Hypo-osmolality and hyponatremia; D69.6 Thrombocytopenia, unspecified; K70.31 Alcoholic cirrhosis of liver with ascites; K72.90 Hepatic failure, unspecified without coma; D64.9 Anemia, unspecified; D72.829 Elevated white blood cell count, unspecified; E87.6 Hypokalemia; I10 Essential (primary) hypertension; K72.10 Chronic hepatic failure without coma; N39.0 Urinary tract infection, site not specified; K76.6 Portal hypertension; Z51.5 Encounter for palliative care; Z79.899 Other long term (current) drug therapy
CPT/HCPCS: 10022; 36415; 70450; 71250; 74176; 76705; 76942; 80048; 80053; 80307; 80320; 81001; 82140; 82150; 82570; 83605; 83690; 83880; 83935; 84300; 85007; 85025; 85027; 85610; 85730; 86850; 86900; 86901; 87045; 87081; 87086; 87205; 87899; 89051; 93005; 96365; 96367; A6257; G0378; J2001; J2405; J2543; J3480; J3490; J7060; P9047